=== PATIENT | male | born 1990 | race Caucasian/White ===

== ENCOUNTER 2016-08-17 15:34 | Emergency (ER) | payer BC ==
[2016-08-17 15:44] VITALS: BP 159/79
--- NOTE | 2016-08-17 16:12 | EDM.PDOC ---
ED HPI GENERAL MEDICAL PROBLEM - General Chief Complaint: Lower Extremity Injury/Pain Stated Complaint: RIGHT FOOT INJURY Time Seen by Provider: 08/17/16 15:43 Source of Information: Reports: Patient History Limitations: Reports: No Limitations - History of Present Illness INITIAL COMMENTS - FREE TEXT/NARRATIVE: The patient [place] and he wiped out and his foot came part way out of the ski and twisted his foot and ankle. He has moderate edema to the right foot and pain upon palpation. He has not tried to walk on it. He denies any other injury. Onset: Sudden Duration: Day(s): (Yesterday) Location: Reports: Lower Extremity, Right (Foot and ankle) Quality: Reports: Sharp Severity: Moderate Improves with: Reports: None Worsens with: Reports: Movement Context: Reports: Activity (Water skiing) Associated Symptoms: Reports: No Other Symptoms Right Feet Pain Score (Numeric/FACES): 6 - Related Data Allergies Allergy/AdvReac Type Severity Reaction Status Date / Time No Known Allergies Allergy Verified 03/12/15 12:37 Home Meds: Home Meds . [No Known Home Meds] 08/17/16 [History] Past Medical History - Past Health History Medical/Surgical History: Denies Medical/Surgical History Social & Family History - Tobacco Use Smoking Status *Q: Never Smoker - Caffeine Use Caffeine Use: Reports: Coffee - Recreational Drug Use Recreational Drug Use: No Review of Systems - Review of Systems Review Of Systems: See Below Constitutional: Reports: No Symptoms Eyes: Reports: No Symptoms Ears: Reports: No Symptoms Nose: Reports: No Symptoms Mouth/Throat: Reports: No Symptoms Respiratory: Reports: No Symptoms Cardiovascular: Reports: No Symptoms GI/Abdominal: Reports: No Symptoms Genitourinary: Reports: No Symptoms Musculoskeletal: Reports: Other (Right foot pain and ankle pain) ED EXAM, GENERAL - Physical Exam Exam: See Below General Appearance: Alert, No Apparent Distress Ears: Normal External Exam Nose: Normal Inspection Head: Atraumatic, Normocephalic Neck: Normal Inspection Respiratory/Chest: No Respiratory Distress Extremities: Other (Moderate edema to the right foot with pain upon palpation. No edema to the ankle but moderate pain upon palpation. Good sensation and pulses distally.) Course - Vital Signs Last Recorded V/S: Last Vital Signs Temp 98.4 F 08/17/16 15:43 Pulse 84 06/11/17 15:43 Resp 20 08/17/16 15:43 BP 159/79 H 08/17/16 15:43 Pulse Ox 100 08/17/16 15:43 - Orders/Labs/Meds Orders: Active Orders 24 hr Category Date Time Status Ankle Min 3V Rt [CR] Stat Exams 08/17/16 15:47 Taken Foot Comp Min 3V Rt [CR] Stat Exams 08/17/16 15:46 Taken - Re-Assessments/Exams Free Text/Narrative Re-Assessment/Exam: 08/17/16 17:58 His ankle x-ray shows a distal tibia fracture. He also has a 2nd metatarsal fracture. I was worried there may be more injuries so I ordered a CT of his foot. The CT shows a nondisplaced medial malleolus fracture in 2 locations. Fracture within the base of the second metatarsal with articular extension. Fracture line widened by about 2.8cm. Minimal cortical fracture within the base of the fourth metatarsal. Minimal fracture also felt to be present within the distal aspect of the 3rd cuneiform bone. I will get him in a walking boot but he will be nonweight bearing. I will also give him crutches. He does not want any thing for pain at this time. I will have him follow up with Dr Morillo next week. Departure - Departure Time of Disposition: 18:05 Disposition: Home, Self-Care 01 Condition: good Clinical Impression: Fx cuneiform, foot-closed Fracture of distal end of tibia Qualifiers: Encounter type: initial encounter Fracture type: closed Fracture morphology: unspecified fracture morphology Laterality: right Qualified Code(s): S82.301A - Unspecified fracture of lower end of right tibia, initial encounter for closed fracture Metatarsal stress fracture of right foot Qualifiers: Encounter type: initial encounter Qualified Code(s): M84.374A - Stress fracture , right foot, initial encounter for fracture - Discharge Information Referrals: Dash Morillo MD [Physician] - 1 Week Forms: ED Department Discharge, Return to Work/School Form Additional Instructions: Ice your foot for 15 minutes every other hour while awake for 2 days. Elevate your foot above your heart as much as you can for 2 days. Take tylenol or motrin for pain. Follow up with Dr Morillo this week. - My Orders Last 24 Hours: My Active Orders 08/17/16 15:46 Foot Comp Min 3V Rt [CR] Stat 08/17/16 15:47 Ankle Min 3V Rt [CR] Stat - Assessment/Plan Last 24 Hours: My Active Orders 08/17/16 15:46 Foot Comp Min 3V Rt [CR] Stat 08/17/16 15:47 Ankle Min 3V Rt [CR] Stat
--- NOTE | 2016-08-17 17:47 | CT ---
CT right foot Technique: Multiple axial sections were obtained through the foot and ankle. Reconstructed sagittal and coronal images were reviewed. Findings: Medial malleolus fracture is seen. 2 fracture lines appear to be present. No displacement is seen. Lateral malleolus appears intact. Well-corticated bony density felt to be old is seen off the anterior calcaneus. Small well-corticated bony density noted off the anterior and dorsal distal talus felt to be old. Fracture is identified within the base of the second metatarsal. Articular extension is seen. Fracture line is widened by about 2.8 mm. Minimal cortical fracture is seen within the base of the fourth metatarsal. Bony density is also seen believed to be off the of the third cuneiform bone felt to represent minimal fracture. No additional fracture is appreciated. Impression: 1. Nondisplaced medial malleolus fracture in 2 locations. 2. Fracture within the base of the second metatarsal with articular extension. Fracture line widened by about 2.8 cm. 3. Minimal cortical fracture within the base of the fourth metatarsal. 4. Minimal fracture also felt to be present within the distal aspect of the third cuneiform bone. Diagnostic code #3
--- NOTE | 2016-08-18 11:14 | CR ---
Right ankle: Three views of the right ankle were obtained. Comparison: Subsequent CT study. Medial malleolus fracture seen which shows no displacement. Ankle mortise is symmetric. No additional bony abnormality is seen. Impression: 1. Nondisplaced medial malleolus fracture. Diagnostic code #3
--- NOTE | 2016-08-18 11:14 | CR ---
Right foot: Three views of the right foot were obtained. Comparison: Study compared to subsequent CT exam performed later on the same day. Mild bony irregularity seen off the anterior and dorsal talus compatible with old injury and minimal residual deformity. Fracture identified within the corner base of the first metatarsal. This involves the cortex compatible with avulsion injury. This is better seen on plain film study than on subsequent CT exam. Subsequent CT study shows additional fractures at the base of the second and fourth metatarsals which is poorly seen on this exam. No additional abnormality is appreciated. Impression: 1. Previous fractures within the base of the second and fourth metatarsals not well seen on plain film exam. 2. Small avulsion fracture is noted off the corner base of the first metatarsal which is not well seen on subsequent CT exam. Diagnostic code #3
== END 2016-08-17 18:22 | disposition home or self-care (01) ==
LOC: JD.ED 15:34
DX: S82.54XA Nondisplaced fracture of medial malleolus of right tibia, initial encounter for closed fracture (principal); S92.321A Displaced fracture of second metatarsal bone, right foot, initial encounter for closed fracture; S92.341A Displaced fracture of fourth metatarsal bone, right foot, initial encounter for closed fracture; S92.221A Displaced fracture of lateral cuneiform of right foot, initial encounter for closed fracture; X50.1XXA Overexertion from prolonged static or awkward postures, initial encounter; Y93.17 Activity, water skiing and wake boarding
CPT/HCPCS: 29515; 73610-26-RT; 73610-RT; 73630-26-RT; 73630-RT; 73700-26-RT; 73700-RT; 99283; 99284-25

== ENCOUNTER 2016-08-28 07:34 | Day surgery (SDC) | payer BC ==
[~2016-08-28 07:34] MED LIST: Lidocaine 1%/Sod Bicarbonate in NS 8.4% 1 ML Syringe PRN; Sodium Chloride 0.9% 10 ML Syringe FLUSH PRN
[2016-08-28] MEDS: Lactated Ringers 1,000 ML IV SCH ×2 (07:55→12:19)
[2016-08-28] MEDS ORDERED: Ondansetron 4 MG/2 ML SDV ONE (07:58)
[2016-08-28] MEDS ORDERED: Midazolam 1 MG/ML 2 ML SDV ONE (07:59)
[2016-08-28] MEDS ORDERED: Propofol 200 MG/20 ML SDV ONE (07:59)
[2016-08-28] MEDS ORDERED: fentaNYL 250 MCG/5 ML SDV ONE (07:59)
[2016-08-28] MEDS ORDERED: Lidocaine 1% 4 ML ONE (07:59)
--- NOTE | 2016-08-28 08:11 | PCM.PREANE ---
Preanesthetic Assessment - Anesthesia/Transfusion/Family Hx Anesthesia History: Prior Anesthesia Without Reaction Family History of Anesthesia Reaction: No Transfusion History: No Prior Transfusion(s) - Review of Systems General: No Symptoms Pulmonary: No Symptoms Cardiovascular: No Symptoms Gastrointestinal: No symptoms Neurological: No Symptoms Other: Reports: None - Physical Assessment NPO Status Date: 08/27/16 NPO Status Time: 21:00 Pulse: 77 O2 Sat by Pulse Oximetry: 99 Respiratory Rate: 16 Blood Pressure: 124/71 Temperature: 37.2 C Vital Signs: Last Vital Signs Temp 37.2 C 08/28/16 07:35 Pulse 77 08/28/16 07:35 Resp 16 08/28/16 07:35 BP 124/71 08/28/16 07:35 Pulse Ox 99 08/28/16 07:35 Height: 1.78 m Weight: 71.668 kg ASA Class: 2 Mental Status: Alert & Oriented x3 Airway Class: Mallampati = 1 Dentition: Reports: Normal Dentition Thyro-Mental Finger Breadths: 3 Mouth Opening Finger Breadths: 3 ROM/Head Extension: Full Lungs: Clear to auscultation, Normal respiratory effort Cardiovascular: Regular Rate, Regular Rhythm - Allergies Allergies/Adverse Reactions: Allergies Allergy/AdvReac Type Severity Reaction Status Date / Time No Known Allergies Allergy Verified 08/27/16 16:08 - Anesthesia Plan Pre-Op Medication Ordered: None - Acknowledgements Anesthesia Type Planned: General Anesthesia Pt an Appropriate Candidate for the Planned Anesthesia: Yes Alternatives and Risks of Anesthesia Discussed w Pt/Guardian: Yes Pt/Guardian Understands and Agrees with Anesthesia Plan: Yes PreAnesthesia Questionnaire - Past Health History Medical/Surgical History: Denies Medical/Surgical History HEENT History: Reports: None Cardiovascular History: Reports: None Respiratory History: Reports: Asthma, Other (See Below) Other Respiratory History: dypsnea Gastrointestinal History: Reports: None Genitourinary History: Reports: None PUTTY MIXER History: Reports: None Musculoskeletal History: Reports: None Neurological History: Reports: None Psychiatric History: Reports: None Endocrine/Metabolic History: Reports: None Hematologic History: Reports: None Immunologic History: Reports: None Oncologic (Cancer) History: Reports: None Dermatologic History: Reports: None - Past Surgical History Head Surgeries/Procedures: Reports: None HEENT Surgical History: Reports: None Cardiovascular Surgical History: Reports: None GI Surgical History: Reports: None Endocrine Surgical History: Reports: None Neurological Surgical History: Reports: None Musculoskeletal Surgical History: Reports: None Oncologic Surgical History: Reports: None Dermatological Surgical History: Reports: None - SUBSTANCE USE Smoking Status *Q: Never Smoker Tobacco Use Within Last Twelve Months: No Second Hand Smoke Exposure: No Days Per Week of Alcohol Use: 1 Number of Drinks Per Day: 0 Total Drinks Per Week: 0 Recreational Drug Use History: No - HOME MEDS Home Medications: Home Meds Albuterol [Ventolin HFA] 1 - 2 puff INH Q4H PRN 08/27/16 [History] Cyclobenzaprine [Flexeril] 10 mg PO TID PRN #40 tablet 08/28/16 [Rx] Hydrocodone/Acetaminophen [Marshall 5-325 Tablet] 1 - 2 each PO Q6H PRN #40 tablet 08/28/16 [Rx] Aspirin/Calcium Carbonate/Mag [Aspirin Buffered 325 mg Tab] 325 mg PO BID #84 tablet 08/29/16 [Rx] - CURRENT (IN HOUSE) MEDS Current Meds: Current Medications Lactated Ringer's (Ringers, Lactated) 1,000 mls @ 125 mls/hr IV ASDIRECTED ANALY Stop: 08/28/16 18:00 Lidocaine/Sodium Bicarbonate (Buffered Lidocaine 1% In Ns 8.4%) 0.25 ml .XX ONETIME PRN PRN Reason: Prior to IV Start Stop: 08/28/16 18:00 Sodium Chloride (Saline Flush) 10 ml FLUSH ASDIRECTED PRN PRN Reason: Keep Vein Open Stop: 08/28/16 18:00 Discontinued Medications Bupivacaine HCl (Marcaine 0.25%) Confirm Administered Dose 30 ml .ROUTE .STK- MED ONE Stop: 08/28/16 07:43 Fentanyl (Sublimaze) Confirm Administered Dose 250 mcg .ROUTE .STK-MED ONE Stop: 08/28/16 08:00 Lidocaine HCl (Xylocaine-Mpf 1%) Confirm Administered Dose 4 mls @ as directed .ROUTE .STK-MED ONE Stop: 08/28/16 08:00 Midazolam HCl (Versed 1 Mg/Ml) Confirm Administered Dose 2 mg .ROUTE .STK-MED ONE Stop: 08/28/16 08:00 Ondansetron HCl (Zofran) Confirm Administered Dose 4 mg .ROUTE .STK-MED ONE Stop: 08/28/16 07:59 Propofol (Diprivan 20 Ml) Confirm Administered Dose 200 mg .ROUTE .STK-MED ONE Stop: 08/28/16 08:00
[2016-08-28] MEDS ORDERED: ceFAZolin 1 GM Vial ONE (08:31)
[2016-08-28] MEDS: Bupivacaine 0.25% 30 ML SDV ONE ×2 (09:12→10:23)
[2016-08-28] MEDS ORDERED: Lactated Ringers 1,000 ML ONE (09:31)
[2016-08-28] MEDS ORDERED: HYDROmorphone 1 MG/ML Syringe ONE (09:36)
[2016-08-28] MEDS ORDERED: Ketorolac 30 MG/ML SDV ONE (10:09)
[2016-08-28] MEDS ORDERED: fentaNYL 100 MCG/2 ML SDV IVPUSH PRN (10:43)
--- NOTE | 2016-08-28 10:44 | PCM.POSTAN ---
POST ANESTHESIA ASSESSMENT - MENTAL STATUS Mental Status: alert, oriented - VITAL SIGNS Pulse Rate: 95 SaO2: 100 Resp Rate: 14 Blood Pressure: 108/57 Temperature: 37.3 C - RESPIRATORY Respiratory Status: respiratory rate WNL, airway patent, O2 saturation stable, supplemental oxygen - CARDIOVASCULAR CV Status: pulse rate WNL, blood pressure stable - GASTROINTESTINAL GI Status: no symptoms - PAIN Pain Score: 0 - POST OP HYDRATION Hydration Status: adequate & stable - OBSERVATIONS Free Text/Narrative:: no anesthesia complications noted
[2016-08-28] MEDS ORDERED: Meperidine PF 50 MG/ML Syringe IVPUSH SCH (10:45)
[2016-08-28] MEDS: HYDROmorphone 0.5 MG/0.5 ML Syringe IVPUSH PRN ×2 (10:57→11:22)
--- NOTE | 2016-08-28 11:47 | CR ---
Right foot: Multiple fluoroscopic spot views utilizing C-arm device were obtained. Comparison: Previous CT right foot study of 08/17/16. Findings: Slightly widened distance between the base of the first and second metatarsals is seen prior to procedural exam. Subsequent study shows fixation between the first and second digits as well as within the first cuneiform bone. Additional screw is seen within the base of the third metatarsal into the adjacent cuneiform bone. Fluoroscopy time is given as 183 seconds. Impression: 1. Postoperative change as described above. Diagnostic code #2
[2016-08-28] MEDS: Acetaminophen/HYDROcodone 325-5 MG Tab PO PRN ×2 (11:53→12:15)
[2016-08-28 14:11] VITALS: BP 124/64
--- NOTE | 2016-08-28 22:22 | PCM.OPNOTE ---
- General Post-Op/Procedure Note Date of Surgery/Procedure: 08/28/16 Operative Procedure(s): open reduction internal fixation of lisfranc injury right foot with fixation of first second and third tarsometatarsal joints Pre Op Diagnosis: lisfrance injury right foot Post-Op Diagnosis: Same Anesthesia Technique: General LMA, Local Primary Surgeon: Dash Morillo Anesthesia Provider: Zain Barnard Press Operator: Cesia Bonilla Press Operator: Fahad Carter EBL in mLs: 5 Complications: None Condition: Good Free Text/Narrative:: Intake & Output 08/28/16 08/28/16 08/28/16 06:59 14:59 22:59 Intake Total 950 Balance 950
--- NOTE | 2016-08-28 23:05 | OR ---
DATE OF OPERATION: 08/28/2016 SURGEON: Dash Morillo MD OPERATION PERFORMED: Open reduction and internal fixation of Lisfranc injury right foot with fixation of 1st, 2nd, and 3rd tarsometatarsal joints. PREOPERATIVE DIAGNOSIS: Lisfranc injury, right foot. POSTOPERATIVE DIAGNOSIS: Lisfranc injury, right foot. ANESTHESIA: General LMA with local. ANESTHESIA PROVIDER: Zain Barnard CRNA. FRONT DESK AUXILIARY: Cesia Bonilla PA-C and Fahad Carter MD. ESTIMATED BLOOD LOSS: Less than 5 mL. COMPLICATIONS: None. CONDITION: Stable. DESCRIPTION OF PROCEDURE: The patient was identified in the preop holding area. Proper site was marked and identified by the surgeon. The patient has taken back to the operating theater. After adequate anesthesia, the patient's right lower extremity had a nonsterile tourniquet applied and was then sterilely prepped and draped in the usual sterile fashion. OR time-out was performed. The patient received 2 g IV Ancef. At this time, the right lower extremity was exsanguinated. Tourniquet was insufflated 250 mmHg. Under C-arm fluoroscopy, the Lisfranc joints of the 1st, 2nd, and 3rd tarsometatarsal joints were then stressed. It was found to have widening between the 1st and 2nd tarsometatarsal joints as well as instability dorsally of the 1st metatarsal. At this time, dorsal incision was made, centered over the 1st, 2nd tarsometatarsal joint. This was taken down and incision was made between the extensor hallucis longus and the extensor hallucis brevis tendon. This was then taken full-thickness down to the tarsometatarsal joint. Subperiosteal dissection was done over the top of the 2nd and 1st metatarsals. First, a fixation and reduction was done of the 1st tarsometatarsal joint. Reduction was done under C-arm fluoroscopy on both AP and lateral views of the foot. A 3.5 cortical drill was then used from the dorsal first metatarsal base, next a 2.5 drill was used through the same hole for lag by technique into the medial cuneiform. A 3.5 cortical screw was then placed across this joint and was found to have rigid fixation. Attention was then turned to re-creating the Lisfranc ligament. A [id number] reduction with clamp was placed after a small medial incision was made over the medial cuneiform. A [id number] reduction clamp was then used for reduction of the 2nd metatarsal with the middle cuneiform. 3.5 cortical drill was then used in the medial cuneiform and a 2.5 drill bit was then used into the dorsal aspect of the base of the 2nd metatarsal. A 3.5 fully threaded cortical screw was then placed in lag by technique designed across the medial cuneiform into the 2nd metatarsal. It was found to have adequate purchase and fixation. At this time, another dorsal lateral incision was made and was taken down to the 3rd metatarsal base. After reduction, 3.5 cortical drill bit was then used in the 3rd metatarsal and then a 2.5 drill bit was then used into the lateral cuneiform and another 3.5 cortical fully threaded screw was placed in lag by technique into the lateral cuneiform from the 3rd metatarsal. At this time, the 4th and 5th metatarsal bases were stressed and found to be stable and no need for percutaneous pinning of these joints. At this time, the ankle joint was also radiographed showing that the medial malleolar fracture was stable in stress view. At this time, adequate saline was irrigated through all wounds. 3-0 Vicryl was used subcutaneously and 4-0 nylon was used for closure of the skin. The patient was placed in a bulky Wick splint and was sent to PACU in stable condition. TERESA /[id number]
== END 2016-08-28 13:54 | disposition home or self-care (01) ==
LOC: JD.SDS 07:34
PROVIDERS: ATTEND Orthopaedic Surgery
PROC: 0QSN04Z Reposition Right Metatarsal with Internal Fixation Device, Open Approach (ICD-10-PCS; principal; 2016-08-28)
PROC: 0QSL04Z Reposition Right Tarsal with Internal Fixation Device, Open Approach (ICD-10-PCS; 2016-08-28)
DX: S93.324A Dislocation of tarsometatarsal joint of right foot, initial encounter (principal); M25.374 Other instability, right foot; J45.20 Mild intermittent asthma, uncomplicated
CPT/HCPCS: 28485; 76000; A9270; J0690; J1170; J1885; J2175; J2250; J2405; J3010; J7120; 01480; C1713; J2704; J3490

== ENCOUNTER 2017-11-26 08:22 | Day surgery (SDC) | payer BC, OTHER ==
[~2017-11-26 08:22] MED LIST changes: +Lactated Ringers 1,000 ML IV SCH; +Lidocaine 1%/Sod Bicarbonate in NS 8.4% 1 ML Syringe IDERM PRN; -Lidocaine 1%/Sod Bicarbonate in NS 8.4% 1 ML Syringe PRN
--- NOTE | 2017-11-26 08:55 | PCM.PREANE ---
Preanesthetic Assessment - Procedure Proposed Procedure: right foot hardware removal and bone exosectomy - Anesthesia/Transfusion/Family Hx Anesthesia History: Prior Anesthesia Without Reaction Family History of Anesthesia Reaction: No Transfusion History: No Prior Transfusion(s) - Review of Systems General: No Symptoms Pulmonary: No Symptoms Cardiovascular: No Symptoms Gastrointestinal: No Symptoms Neurological: No Symptoms Other: Reports: None - Physical Assessment NPO Status Date: 11/25/17 NPO Status Time: 22:00 Pulse: 87 O2 Sat by Pulse Oximetry: 100 Respiratory Rate: 16 Blood Pressure: 136/86 Temperature: 98.3 F Height: 5 ft 10 in Weight: 68 kg ASA Class: 1 Mental Status: Alert & Oriented x3 Airway Class: Mallampati = 1 Dentition: Reports: Normal Dentition Thyro-Mental Finger Breadths: 3 Mouth Opening Finger Breadths: 3 ROM/Head Extension: Full Lungs: Clear to Auscultation, Normal Respiratory Effort Cardiovascular: Regular Rate, Regular Rhythm - Lab Values: Laboratory Last Values WBC 4.27 K/mm3 (4.23-9.07) 11/10/17 12:07 RBC 5.27 M/mm3 (4.63-6.08) 11/10/17 12:07 Hgb 15.9 gm/L (13.7-17.5) 11/10/17 12:07 Hct 44.7 % (40.1-51.0) 11/10/17 12:07 MCV 84.8 fl (79.0-92.2) 11/10/17 12:07 MCH 30.2 pg (25.7-32.2) 11/10/17 12:07 MCHC 35.6 g/dl (32.2-35.5) H 11/10/17 12:07 RDW Std Deviation 41.0 fL (35.1-43.9) 11/10/17 12:07 Plt Count 228 K/mm3 (163-337) 11/10/17 12:07 MPV 9.0 fl (9.4-12.3) L 11/10/17 12:07 Neut % (Auto) 36.5 % (34.0-67.9) 11/10/17 12:07 Lymph % (Auto) 52.7 % (21.8-53.1) 11/10/17 12:07 Cherry % (Auto) 9.6 % (5.3-12.2) 11/10/17 12:07 Eos % (Auto) 0.7 (0.8-7.0) L 11/10/17 12:07 Baso % (Auto) 0.5 % (0.1-1.2) 11/10/17 12:07 Neut # (Auto) 1.56 K/mm3 (1.78-5.38) L 11/10/17 12:07 Lymph # (Auto) 2.25 K/mm3 (1.32-3.57) 11/10/17 12:07 Cherry # (Auto) 0.41 K/mm3 (0.30-0.82) 11/10/17 12:07 Eos # (Auto) 0.03 K/mm3 (0.04-0.54) L 11/10/17 12:07 Baso # (Auto) 0.02 K/mm3 (0.01-0.08) 11/10/17 12:07 Sodium 140 mEq/L (136-145) 11/10/17 12:07 Potassium 4.0 mEq/L (3.5-5.1) 11/10/17 12:07 Chloride 103 mEq/L (98-107) 11/10/17 12:07 Carbon Dioxide 30 mEq/L (21-32) 11/10/17 12:07 Anion Gap 11.0 (5-15) 11/10/17 12:07 BUN 12 mg/dL (7-18) 11/10/17 12:07 Creatinine 1.0 mg/dL (0.7-1.3) 11/10/17 12:07 Est Cr Clr Drug Dosing TNP 11/10/17 12:07 Estimated GFR (MDRD) > 60 mL/min (>60) 11/10/17 12:07 BUN/Creatinine Ratio 12.0 (14-18) L 11/10/17 12:07 Glucose 99 mg/dL (74-106) 11/10/17 12:07 Calcium 8.7 mg/dL (8.5-10.1) 11/10/17 12:07 MRSA (PCR) Negative 11/10/17 12:07 - Allergies Allergies/Adverse Reactions: Allergies Allergy/AdvReac Type Severity Reaction Status Date / Time No Known Allergies Allergy Verified 11/25/17 13:47 - Blood Blood Available: No - Acknowledgements Anesthesia Type Planned: General Anesthesia, MAC Pt an Appropriate Candidate for the Planned Anesthesia: Yes Alternatives and Risks of Anesthesia Discussed w Pt/Guardian: Yes Pt/Guardian Understands and Agrees with Anesthesia Plan: Yes PreAnesthesia Questionnaire - Past Health History Medical/Surgical History: Denies Medical/Surgical History HEENT History: Reports: None Cardiovascular History: Reports: None Gastrointestinal History: Reports: None Genitourinary History: Reports: None RAIL SPECIALIST History: Reports: None Musculoskeletal History: Reports: None Neurological History: Reports: None Psychiatric History: Reports: None Endocrine/Metabolic History: Reports: None Hematologic History: Reports: None Immunologic History: Reports: None Oncologic (Cancer) History: Reports: None Dermatologic History: Reports: None - Past Surgical History Head Surgeries/Procedures: Reports: None HEENT Surgical History: Reports: Oral Surgery Cardiovascular Surgical History: Reports: None Respiratory Surgical History: Reports: None GI Surgical History: Reports: None Endocrine Surgical History: Reports: None Neurological Surgical History: Reports: None Musculoskeletal Surgical History: Reports: None, Other (See Below) (screws placed right foot) Oncologic Surgical History: Reports: None Dermatological Surgical History: Reports: None - SUBSTANCE USE Smoking Status *Q: Never Smoker Tobacco Use Within Last Twelve Months: No Second Hand Smoke Exposure: No Days Per Week of Alcohol Use: 1 (once per month) Recreational Drug Use History: No - HOME MEDS Home Medications: Home Meds Acetaminophen/HYDROcodone [Kulm 325-5 MG] 1 - 2 tab PO Q6H PRN #40 tablet 11/26 [Rx] Aspirin 325 mg PO BID #84 tab 11/26/17 [Rx] - CURRENT (IN HOUSE) MEDS Current Meds: Current Medications Lactated Ringer's (Ringers, Lactated) 1,000 mls @ 125 mls/hr IV ASDIRECTED ANALY Stop: 11/26/17 23:00 Lidocaine/Sodium Bicarbonate (Buffered Lidocaine 1% In Ns 8.4%) 0.25 ml IDERM ONETIME PRN PRN Reason: Prior to IV Start Stop: 11/26/17 18:00 Sodium Chloride (Saline Flush) 10 ml FLUSH ASDIRECTED PRN PRN Reason: Keep Vein Open Stop: 11/26/17 18:00
[2017-11-26] MEDS ORDERED: Bupivacaine 0.25% 30 ML SDV ONE (09:27)
[2017-11-26] MEDS ORDERED: Dexamethasone 4 MG/ML 5 ML MDV ONE (09:33)
[2017-11-26] MEDS ORDERED: ceFAZolin 1 GM Vial ONE (09:33)
[2017-11-26] MEDS ORDERED: Lactated Ringers 1,000 ML ONE (09:33)
[2017-11-26] MEDS ORDERED: Propofol 200 MG/20 ML SDV ONE (09:33)
[2017-11-26] MEDS ORDERED: Ondansetron 4 MG/2 ML SDV ONE (09:33)
[2017-11-26] MEDS ORDERED: HYDROmorphone 0.5 MG/0.5 ML Syringe ONE ×2 (09:33→10:29)
[2017-11-26] MEDS ORDERED: Ketorolac 30 MG/ML SDV ONE (09:33)
[2017-11-26] MEDS ORDERED: Lidocaine 1% 4 ML ONE (09:33)
[2017-11-26] MEDS ORDERED: fentaNYL 100 MCG/2 ML SDV ONE ×2 (09:33→10:32)
[2017-11-26] MEDS ORDERED: Midazolam 1 MG/ML 2 ML SDV ONE (09:34)
[2017-11-26] MEDS ORDERED: Ondansetron 4 MG/2 ML SDV IVPUSH PRN (10:04)
[2017-11-26] MEDS ORDERED: HYDROmorphone 0.5 MG/0.5 ML Syringe IVPUSH PRN (10:04)
[2017-11-26] MEDS ORDERED: diphenhydrAMINE 50 MG/ML SDV IVPUSH PRN (10:04)
[2017-11-26] MEDS ORDERED: fentaNYL 100 MCG/2 ML SDV IVPUSH PRN (10:04)
[2017-11-26] MEDS ORDERED: ePHEDrine 50 MG/ML SDV IVPUSH PRN (10:04)
[2017-11-26] MEDS ORDERED: Meperidine 50 MG/ML Vial IVPUSH PRN (10:04)
[2017-11-26] MEDS ORDERED: Phenylephrine 1 MG in Sodium Chloride 0.9% 10 ML IV SCH (10:15)
--- NOTE | 2017-11-26 11:22 | PCM.POSTAN ---
POST ANESTHESIA ASSESSMENT - MENTAL STATUS Mental Status: Alert - VITAL SIGNS Pulse Rate: 73 SaO2: 100 Resp Rate: 9 Blood Pressure: 128/82 Temperature: 36.6 C - RESPIRATORY Respiratory Status: Respiratory Rate WNL, Airway Patent, O2 Saturation Stable, Supplemental Oxygen - CARDIOVASCULAR CV Status: Pulse Rate WNL, Blood Pressure Stable - GASTROINTESTINAL GI Status: No Symptoms - POST OP HYDRATION Hydration Status: Adequate & Stable
--- NOTE | 2017-11-26 12:38 | CR ---
Right foot: Multiple fluoroscopic spot views were obtained of the right midfoot utilizing C-arm device. Comparison: Previous foot exam of 08/28/16. Findings: Study shows removal of 2 1/2 screws. One remaining distal screw fragment remains which appears fractured within the tarsal bones. Fluoroscopy time is given as 87.2 seconds Impression: 1. Operative study as described above. Diagnostic code #2
--- NOTE | 2017-11-26 13:09 | PCM48HPAN ---
Post Anesthesia Note - EVALUATION WITHIN 48HRS OF ANESTHETIC Vital Signs in Normal Range: Yes Patient Participated in Evaluation: Yes Respiratory Function Stable: Yes Airway Patent: Yes Cardiovascular Function Stable: Yes Hydration Status Stable: Yes Pain Control Satisfactory: Yes Nausea and Vomiting Control Satisfactory: Yes Mental Status Recovered: Yes
[2017-11-26 13:33] VITALS: BP 134/74
--- NOTE | 2017-12-07 07:17 | PCM.OPNOTE ---
- General Post-Op/Procedure Note Date of Surgery/Procedure: 11/26/17 Operative Procedure(s): right foot deep hardware removal with talar exostectomy Pre Op Diagnosis: right foot painful hardware with bony exostoses Post-Op Diagnosis: Same Anesthesia Technique: General LMA, Local Primary Surgeon: Dash Morillo Anesthesia Provider: Courtney Nunez Net Trainer: Cesia Bonilla EBYang in mLs: 30 Complications: None Condition: Good
--- NOTE | 2017-12-07 14:57 | OR ---
DATE OF OPERATION: 11/26/2017 SURGEON: Dash Morillo MD OPERATION PERFORMED: Right foot deep hardware removal with talar exostectomy. PREOPERATIVE DIAGNOSIS: Right foot painful hardware with bony exostosis. POSTOPERATIVE DIAGNOSIS: Right foot painful hardware with bony exostosis. ANESTHESIA: General LMA with local. ANESTHESIA PROVIDER: Courtney Nunez CRNA. FOOD AND BEVERAGE ASSISTANT: Cesia Bonilla PA-C. ESTIMATED BLOOD LOSS: 30 mL. COMPLICATIONS: None. CONDITION: Stable. DESCRIPTION OF PROCEDURE: The patient was identified in the preop holding area. Proper site was marked and identified by the surgeon. The patient was taken to the operating theater, where after adequate anesthesia, the patient's right lower extremity had a nonsterile tourniquet applied and then was sterilely prepped and draped in the usual sterile fashion. OR time-out was performed. The patient received 2 g IV Ancef. At this time, the right lower extremity was exsanguinated and the tourniquet was insufflated to 250 mmHg. The previous dorsal incision on the medial side was then utilized. A small incision was made. Blunt dissection was taken down to the screw head and proper screwdriver was used and the screw across the first MTT joint was removed. At this time, attention was turned to the second screw. At the second screw, another small incision was made and this was then removed. Attention was turned to the medial screw. At this time, a small poke incision was made and again, this was removed under similar fashion. All 3 of the screws were removed other than just a small portion of the far lateral screw which just the far portion was well seated in the bone with no signs of loosening. At this time, adequate saline was irrigated through those wounds and attention was turned to the talar neck. There was noted to be a significant talar exostosis that was palpable through the skin. An incision was made over this talar neck exostosis. Blunt dissection was taken down to the extensor fascia. The fascia was incised and the bony exostosis was sitting on the talar neck. At this time, subperiosteal elevators were used and resection of the bony prominences done under direct visualization as well as C-arm fluoroscopy. It was no longer palpable through the skin. Adequate saline was then irrigated through this as well. 3-0 Vicryl was used deep in all the incisions and then nylon was used for closure of the skin. The patient was placed in a sterile soft dressing and sent to the PACU in stable condition. TERESA /[id number]
== END 2017-11-26 13:12 | disposition home or self-care (01) ==
LOC: JD.SDS 08:22
PROVIDERS: ATTEND Orthopaedic Surgery
DX: T84.84XA Pain due to internal orthopedic prosthetic devices, implants and grafts, initial encounter (principal); M89.8X7 Other specified disorders of bone, ankle and foot; Z79.82 Long term (current) use of aspirin; Z79.899 Other long term (current) drug therapy
CPT/HCPCS: 20680; 28100; 36415; 76000; 80048; 85025; 87641; J0690; J1100; J1170; J1885; J2250; J2405; J2704; J3010; J3490; J7120; 01480; J2001